=== PATIENT | female | born 1955 | race Caucasian/White ===

== ENCOUNTER → 2018-04-23 | Outpatient (CLI) | payer OTHER | END | disposition home or self-care (01) | LOC: CFH 11:38 | PROVIDERS: ATTEND Internal Medicine | DX: N64.59 Other signs and symptoms in breast (principal); Z80.3 Family history of malignant neoplasm of breast | CPT/HCPCS: 77066 ==

== ENCOUNTER 2019-01-19 18:59 | Inpatient (IN) | payer OTHER ==
[~2019-01-19] VITALS: Ht 172.7 cm; Wt 88.2 kg
--- NOTE | 2019-01-19 19:17 | NUR ---
URINE SENT TO LAB
[2019-01-19] MEDS ORDERED: SODIUM CHLORIDE FLUSH 10ML SYR IVF ONE ×2 (19:30→20:30)
[2019-01-19 19:31] LABS: MICROSCOPIC NOT IND
[2019-01-19 19:36] LABS: MEAN CORPUSCULAR HEMOGLOBIN 31.8 pg (27.0-34.8); MEAN CORPUSCULAR HGB CONC 33.4 g/dL (32.4-35.8); MEAN CORPUSCULAR VOLUME 95.1 fL (80-100); MEAN PLATELET VOLUME 10.4 fL (7.4-10.4); PLATELET COUNT 224 x10^3/uL (130-400); RED BLOOD COUNT 4.52 x10^6/uL (3.82-5.3); RED CELL DISTRIBUTION WIDTH 13.4 % (9.6-15.2)
[2019-01-19 19:44] LABS: CULTURE INDICATED? NO
[2019-01-19 19:47] LABS: ALANINE AMINOTRANSFERASE 29 U/L (12-78); ALBUMIN 4.1 g/dL (3.4-5.0); ANION GAP 6 mmol/L (5-15); CALCIUM 9.3 mg/dL (8.5-10.1); CHLORIDE 103 mmol/L (98-107); CREATININE 0.82 mg/dL (0.55-1.02)
[2019-01-19 19:49] LABS: ALKALINE PHOSPHATASE 129 U/L (45-117); BILIRUBIN,TOTAL 1.4 mg/dL (0.2-1.0); TOTAL PROTEIN 7.5 g/dL (6.4-8.2)
[2019-01-19 20:04] LABS: MD YES
[2019-01-19 20:06] LABS: <PLATELET ESTIMATE> ADEQUATE; <PLT MORPHOLOGY> NORMAL PLT MORPH; <RBC MORPHOLOGY> NORMAL; BAND#(MANUAL) 0.97 x10^3/uL; BANDS%(MANUAL) 5 % (0-7); LYMPH#(MANUAL) 1.35 x10^3/uL (1-3.4); LYMPHS% (MANUAL) 7 % (22-44); MONOS#(MANUAL) 0.58 x10^3/uL (0.3-2.7); MONOS% (MANUAL) 3 % (2-9); SEG#(MANUAL) 16.41 x10^3/uL (1.8-6.8); SEGS% (MANUAL) 85 % (42-75)
--- NOTE | 2019-01-19 20:10 | NUR ---
pt called to room from lobby
[2019-01-19] MEDS ORDERED: HYDROmorphone 2 MG/ML, 1ML IVPush PRN ×2 (20:30→21:30)
[2019-01-19] MEDS ORDERED: ONDANSETRON 2MG/ML, 2ML IVPush ONE (20:30)
[2019-01-19] MEDS ORDERED: CEFOTETAN PMX 1GM/50ML 50 ML IV ONE (20:30)
[2019-01-19] MEDS ORDERED: CEFOTETAN PMX 1GM/50ML 50 ML ONE (20:32)
[2019-01-19] MEDS ORDERED: ONDANSETRON 2MG/ML, 2ML ONE (20:32)
[2019-01-19] MEDS ORDERED: HYDROmorphone 2 MG/ML, 1ML ONE ×2 (20:32→21:58)
--- NOTE | 2019-01-19 21:03 | NUR ---
pt tolerated piv lab draws, ivabx started at this time vss
[2019-01-19] MEDS ORDERED: METRONIDAZOLE PMX 500MG/100ML 100 ML ONE (21:26)
[2019-01-19] MEDS ORDERED: METRONIDAZOLE PMX 500MG/100ML 100 ML IV ONE (21:30)
--- NOTE | 2019-01-19 21:52 | NUR ---
awaiting admit bed
--- NOTE | 2019-01-19 22:05 | NUR ---
medicated for pain
--- NOTE | 2019-01-19 22:08 | NUR ---
report to rosalinda pt to floor with tech
[2019-01-19 23:09] VITALS: BP 141/93
[2019-01-20] MEDS ORDERED: OMNIPAQUE 350 MG/ML, 100ML BOTTLE ONE ×2 (00:12→22:21)
[2019-01-20] MEDS ORDERED: ONDANSETRON 2MG/ML, 2ML IVPush PRN (00:30)
[2019-01-20] MEDS ORDERED: PROMETHAZINE 25 MG/ML, 1ML IM PRN (00:30)
[2019-01-20] MEDS ORDERED: hydrALAzine 20 MG/ML, 1ML IVPush PRN (01:00)
[2019-01-20] MEDS ORDERED: LIDODERM 5% PATCH TD PRN (01:00)
[2019-01-20 01:01] VITALS: BP 137/88
[2019-01-20] MEDS: METRONIDAZOLE PMX 500MG/100ML 100 ML IV SCH ×4 (04:05→22:29)
[2019-01-20] MEDS: KETOROLAC 30 MG/1 ML IV PRN ×2 (06:18→19:32)
[2019-01-20 07:40] VITALS: BP 100/66
[2019-01-20 08:50] LABS: INTERNATIONAL NORMALIZED RATIO 1.02 (0.93-1.1); PROTHROMBIN TIME 10.7 Seconds (9.6-11.5)
[2019-01-20] MEDS: HEPARIN 5,000 UNITS/ML, 1ML SQ SCH ×3 (08:57→22:28)
[2019-01-20] MEDS: CEFOTETAN PMX 1GM/50ML 50 ML IV SCH ×2 (09:04→20:13)
[2019-01-20 09:22] LABS: BASOPHILS # (AUTO) 0.02 x10^3/uL (0-0.1); BASOPHILS % (AUTO) 0 % (0-1); EOSINOPHILS # (AUTO) 0.02 x10^3/uL (0-0.4); EOSINOPHILS % (AUTO) 0 % (1-7); LYMPHOCYTES % (AUTO) 11 % (22-44); MD NO; MEAN CORPUSCULAR HEMOGLOBIN 31.1 pg (27.0-34.8); MEAN CORPUSCULAR HGB CONC 32.8 g/dL (32.4-35.8); MEAN CORPUSCULAR VOLUME 94.8 fL (80-100); MEAN PLATELET VOLUME 10.4 fL (7.4-10.4); MONOCYTES # (AUTO) 0.58 x10^3/uL (0.2-0.8); MONOCYTES % (AUTO) 4 % (2-9); NEUTROPHILS # (AUTO) 12.44 x10^3/uL (1.8-6.8); NEUTROPHILS % (AUTO) 85 % (42-75); PLATELET COUNT 195 x10^3/uL (130-400); RED BLOOD COUNT 4.18 x10^6/uL (3.82-5.3); RED CELL DISTRIBUTION WIDTH 13.7 % (9.6-15.2)
[2019-01-20 09:28] LABS: ANION GAP 8 mmol/L (5-15); CALCIUM 8.9 mg/dL (8.5-10.1); CHLORIDE 105 mmol/L (98-107); CREATININE 0.84 mg/dL (0.55-1.02)
[2019-01-20] MEDS: MORPHINE SULFATE 4 MG/ML, 1ML IVPush PRN ×3 (11:29→22:29)
[2019-01-20] MEDS: ONDANSETRON 2MG/ML, 2ML IVPush PRN ×2 (11:30→17:39)
[2019-01-20] MEDS: CIPROFLOXACIN/PMX 400MG/200ML 200 ML IV SCH (12:56)
[2019-01-20] MEDS ORDERED: LIDOCAINE-MPF 1%, 5ML ONE (13:06)
[2019-01-20 14:30] VITALS: BP 109/71
[2019-01-20 14:45] VITALS: BP 104/68
[2019-01-20 19:42] VITALS: BP_SYST 101; BP_SYST 106; BP_DIAS 64; BP_DIAS 69
[2019-01-21] MEDS: CIPROFLOXACIN/PMX 400MG/200ML 200 ML IV SCH ×2 (00:57→13:28)
[2019-01-21 01:08] VITALS: BP 101/62
[2019-01-21] MEDS: MORPHINE SULFATE 4 MG/ML, 1ML IVPush PRN ×5 (03:30→21:54)
[2019-01-21] MEDS: ONDANSETRON 2MG/ML, 2ML IVPush PRN ×4 (03:30→19:48)
[2019-01-21] MEDS: METRONIDAZOLE PMX 500MG/100ML 100 ML IV SCH ×4 (04:06→21:55)
[2019-01-21 04:41] LABS: BASOPHILS # (AUTO) 0.03 x10^3/uL (0-0.1); BASOPHILS % (AUTO) 0 % (0-1); EOSINOPHILS # (AUTO) 0.13 x10^3/uL (0-0.4); EOSINOPHILS % (AUTO) 1 % (1-7); LYMPHOCYTES # (AUTO) 1.36 x10^3/uL (1-3.4); LYMPHOCYTES % (AUTO) 10 % (22-44); MD NO; MEAN CORPUSCULAR HEMOGLOBIN 31.1 pg (27.0-34.8); MEAN CORPUSCULAR HGB CONC 32.9 g/dL (32.4-35.8); MEAN CORPUSCULAR VOLUME 94.5 fL (80-100); MEAN PLATELET VOLUME 10.3 fL (7.4-10.4); MONOCYTES # (AUTO) 0.83 x10^3/uL (0.2-0.8); MONOCYTES % (AUTO) 6 % (2-9); NEUTROPHILS # (AUTO) 11.79 x10^3/uL (1.8-6.8); NEUTROPHILS % (AUTO) 84 % (42-75); PLATELET COUNT 184 x10^3/uL (130-400); RED BLOOD COUNT 3.66 x10^6/uL (3.82-5.3); RED CELL DISTRIBUTION WIDTH 13.6 % (9.6-15.2)
[2019-01-21 04:47] LABS: ANION GAP 6 mmol/L (5-15); CALCIUM 8.3 mg/dL (8.5-10.1); CHLORIDE 103 mmol/L (98-107); CREATININE 0.93 mg/dL (0.55-1.02)
[2019-01-21] MEDS: KETOROLAC 30 MG/1 ML IV PRN ×3 (06:39→19:48)
[2019-01-21 07:58] VITALS: BP 102/68
[2019-01-21] MEDS: CEFOTETAN PMX 1GM/50ML 50 ML IV SCH ×2 (08:24→19:49)
[2019-01-21] MEDS: DOCUSATE 100 MG CAPSULE PO PRN ×2 (08:24→21:55)
[2019-01-21] MEDS: SODIUM CHLORIDE 0.9% 1,000 ML IV SCH (08:26)
[2019-01-21] MEDS: HEPARIN 5,000 UNITS/ML, 1ML SQ SCH ×3 (08:26→22:12)
[2019-01-21 13:37] VITALS: BP 96/65
[2019-01-21 19:43] VITALS: BP 138/80
[2019-01-22] MEDS: SODIUM CHLORIDE 0.9% 1,000 ML IV SCH (01:04)
[2019-01-22] MEDS: CIPROFLOXACIN/PMX 400MG/200ML 200 ML IV SCH ×2 (01:04→13:26)
[2019-01-22] MEDS: MORPHINE SULFATE 4 MG/ML, 1ML IVPush PRN ×3 (01:21→15:45)
[2019-01-22 01:50] VITALS: BP 124/74
[2019-01-22] MEDS: KETOROLAC 30 MG/1 ML IV PRN (03:51)
[2019-01-22] MEDS: METRONIDAZOLE PMX 500MG/100ML 100 ML IV SCH ×4 (03:51→21:53)
[2019-01-22 04:46] LABS: BASOPHILS # (AUTO) 0.08 x10^3/uL (0-0.1); BASOPHILS % (AUTO) 1 % (0-1); EOSINOPHILS # (AUTO) 0.21 x10^3/uL (0-0.4); EOSINOPHILS % (AUTO) 2 % (1-7); LYMPHOCYTES % (AUTO) 15 % (22-44); MD NO; MEAN CORPUSCULAR HEMOGLOBIN 31.8 pg (27.0-34.8); MEAN CORPUSCULAR VOLUME 96.2 fL (80-100); MEAN PLATELET VOLUME 10.4 fL (7.4-10.4); MONOCYTES # (AUTO) 0.56 x10^3/uL (0.2-0.8); MONOCYTES % (AUTO) 6 % (2-9); NEUTROPHILS # (AUTO) 7.28 x10^3/uL (1.8-6.8); NEUTROPHILS % (AUTO) 76 % (42-75); PLATELET COUNT 178 x10^3/uL (130-400); RED BLOOD COUNT 3.59 x10^6/uL (3.82-5.3); RED CELL DISTRIBUTION WIDTH 13.9 % (9.6-15.2)
[2019-01-22] MEDS: HEPARIN 5,000 UNITS/ML, 1ML SQ SCH ×3 (08:01→21:53)
[2019-01-22 08:02] VITALS: BP 122/70
[2019-01-22] MEDS: CEFOTETAN PMX 1GM/50ML 50 ML IV SCH ×2 (08:27→19:57)
[2019-01-22] MEDS ORDERED: CIPROFLOXACIN 500 MG TABLET PO SCH (09:00)
[2019-01-22] MEDS ORDERED: metroNIDAZOLE 500 MG TABLET PO SCH (09:00)
[2019-01-22] MEDS: DOCUSATE 100 MG CAPSULE PO PRN (12:00)
[2019-01-22 12:31] VITALS: BP 118/74
[2019-01-22] MEDS: ONDANSETRON 2MG/ML, 2ML IVPush PRN (15:45)
[2019-01-22 19:41] VITALS: BP 116/76
[2019-01-23 00:45] VITALS: BP 117/70
[2019-01-23] MEDS: CIPROFLOXACIN/PMX 400MG/200ML 200 ML IV SCH ×2 (01:07→13:30)
[2019-01-23] MEDS: METRONIDAZOLE PMX 500MG/100ML 100 ML IV SCH ×4 (04:20→22:19)
[2019-01-23] MEDS: SODIUM CHLORIDE 0.9% 1,000 ML IV SCH (04:21)
[2019-01-23 07:28] VITALS: BP 118/99
[2019-01-23] MEDS: CEFOTETAN PMX 1GM/50ML 50 ML IV SCH (08:35)
[2019-01-23] MEDS: HEPARIN 5,000 UNITS/ML, 1ML SQ SCH ×3 (08:38→22:24)
[2019-01-23] MEDS ORDERED: OXYcodone/APAP 10/325MG TABLET PO PRN (11:00)
[2019-01-23] MEDS ORDERED: FUROSEMIDE 40 MG/4 ML IV ONE (11:00)
[2019-01-23 15:19] VITALS: BP 116/80
[2019-01-23 19:19] VITALS: BP 144/82
[2019-01-23] MEDS: ONDANSETRON 2MG/ML, 2ML IVPush PRN (23:39)
[2019-01-24 00:54] VITALS: BP 119/71
[2019-01-24] MEDS: CIPROFLOXACIN/PMX 400MG/200ML 200 ML IV SCH (01:13)
[2019-01-24] MEDS: METRONIDAZOLE PMX 500MG/100ML 100 ML IV SCH (04:08)
[2019-01-24 05:30] LABS: BASOPHILS # (AUTO) 0.04 x10^3/uL (0-0.1); BASOPHILS % (AUTO) 1 % (0-1); EOSINOPHILS # (AUTO) 0.31 x10^3/uL (0-0.4); EOSINOPHILS % (AUTO) 4 % (1-7); LYMPHOCYTES # (AUTO) 1.74 x10^3/uL (1-3.4); LYMPHOCYTES % (AUTO) 22 % (22-44); MD NO; MEAN CORPUSCULAR HEMOGLOBIN 30.8 pg (27.0-34.8); MEAN CORPUSCULAR HGB CONC 32.7 g/dL (32.4-35.8); MEAN CORPUSCULAR VOLUME 94.2 fL (80-100); MEAN PLATELET VOLUME 9.6 fL (7.4-10.4); MONOCYTES % (AUTO) 9 % (2-9); NEUTROPHILS # (AUTO) 5.27 x10^3/uL (1.8-6.8); NEUTROPHILS % (AUTO) 65 % (42-75); PLATELET COUNT 252 x10^3/uL (130-400); RED CELL DISTRIBUTION WIDTH 13.6 % (9.6-15.2)
[2019-01-24 05:33] LABS: ALBUMIN 2.8 g/dL (3.4-5.0); ANION GAP 4 mmol/L (5-15); CALCIUM 8.8 mg/dL (8.5-10.1); CHLORIDE 104 mmol/L (98-107)
[2019-01-24 05:42] LABS: ALANINE AMINOTRANSFERASE 15 U/L (12-78); ALKALINE PHOSPHATASE 111 U/L (45-117); BILIRUBIN,TOTAL 0.8 mg/dL (0.2-1.0); CREATININE 0.72 mg/dL (0.55-1.02); TOTAL PROTEIN 6.2 g/dL (6.4-8.2)
[2019-01-24 06:09] LABS: HCT (SEDRATE) 34.8 % (34.6-47.8)
[2019-01-24] MEDS: HEPARIN 5,000 UNITS/ML, 1ML SQ SCH (07:30)
[2019-01-24 08:26] VITALS: BP 110/70
[2019-01-24] MEDS ORDERED: POTASSIUM CHLORIDE 20 MEQ TAB.ER.PRT PO ONE (09:30)
[2019-01-24] MEDS ORDERED: CIPROFLOXACIN 500 MG TABLET PO SCH (09:30)
[2019-01-24] MEDS ORDERED: metroNIDAZOLE 500 MG TABLET PO SCH (09:30)
[2019-01-24] MEDS ORDERED: FUROSEMIDE 20 MG/2 ML IV ONE (09:30)
[2019-01-24 12:39] VITALS: BP 108/70
[2019-01-24] MEDS ORDERED: METR500T PO (13:45)
[2019-01-24] MEDS ORDERED: CIPR500T3 PO (13:45)
[2019-01-24] MEDS ORDERED: ACET500T76 PO (13:45)
== END 2019-01-24 15:40 | disposition home or self-care (01) | DRG 441 ==
LOC: ED 22:08 → EDIP 22:09 → 3NW 22:25 → DCLOUNGE 01-24 15:32
PROVIDERS: ADMIT Family Medicine; ATTEND Family Medicine
PROC: 0FB23ZX Excision of Left Lobe Liver, Percutaneous Approach, Diagnostic (ICD-10-PCS; principal; 2019-01-20)
DX: D13.4 Benign neoplasm of liver (principal); R65.11 Systemic inflammatory response syndrome (SIRS) of non-infectious origin with acute organ dysfunction; K65.9 Peritonitis, unspecified; K57.32 Diverticulitis of large intestine without perforation or abscess without bleeding; R60.1 Generalized edema; E87.6 Hypokalemia; G47.00 Insomnia, unspecified; E78.5 Hyperlipidemia, unspecified; Z90.710 Acquired absence of both cervix and uterus; Z83.3 Family history of diabetes mellitus; Z98.891 History of uterine scar from previous surgery
CPT/HCPCS: 36415; 47000; 74174; 74177; 76942; 80048; 80053; 81003; 83690; 85025; 85610; 85651; 86140; 87040; 88307; 88313; 88341; 88342; 96361; 96365; 96375; 99156; 99157; G0378; J0744; J1170; J1885; J1940; J2250; J2405; J3010; Q9967; J2270; J2310; J3490; J7030

== ENCOUNTER → 2019-01-19 | Outpatient (CLI) | payer OTHER ==
[~2019-01-19] MED LIST: ACET500T76 PO; CIPR500T3 PO; METR500T PO
== END | disposition home or self-care (01) ==
LOC: RAD 18:36
PROVIDERS: ATTEND Family Medicine
DX: Z02.9 Encounter for administrative examinations, unspecified (principal)